=== PATIENT | female | born 1975 | race Hispanic/Latino ===

== ENCOUNTER 2023-12-19 14:02 | Emergency (ER) | payer BC ==
[2023-12-19] MEDS ORDERED: IBUPROFEN 200 MG TAB PO ONE (14:38)
--- NOTE | 2023-12-19 16:29 | RAD REPORT ---
EXAM DESCRIPTION: RAD - Shoulder Left 2 View - 12/19/2023 2:44 pm CLINICAL HISTORY: PAIN COMPARISON: No comparisons TECHNIQUE: Internal and external rotation views of the left shoulder were obtained. FINDINGS: There is no fracture or dislocation. AC joint is normal in appearance. No acute or suspici ous findings. IMPRESSION: Negative two-view left shoulder examination.
--- NOTE | 2023-12-19 16:37 | ER ---
Nurse's Notes [facility] Name: Dora Oliveira Age: 48 yrs Sex: Female : 1975 Arrival Date: 12/19/2023 Time: 14:02 Bed DX2 Private MD: Diagnosis: Pain in left shoulder Presentation: 12/18 14:16 Chief complaint: Patient states: L anterior chest pain/L shoulder pain from trying to me1 break down a door. 12/05. Coronavirus screen: Vaccine status: Patient reports receiving the 2nd dose of the covid vaccine. Ebola Screen: No symptoms or risks identified at this time. Initial Sepsis Screen: Does the patient meet any 2 criteria? No. Patient's initial sepsis screen is negative. Risk Assessment: Do you want to hurt yourself or someone else? Patient reports no desire to harm self or others. Onset of symptoms was December 19, 2023. 14:16 Method Of Arrival: [place] [facility] [place] 14:16 Acuity: JENNIFER 4 md1 16:43 Initial Sepsis Screen: Does the patient have a suspected source of infection? No. me1 Patient's initial sepsis screen is negative. Triage Assessment: 14:17 General: Appears uncomfortable, obese, well groomed, well developed, Behavior is calm, me1 cooperative, appropriate for age, Reports L chest/shoulder pain. Pain: Complains of pain in left clavicle and anterior aspect of left upper chest Pain does not radiate. Pain currently is 7 out of 10 on a pain scale. Quality of pain is described as gnawing, Pain began suddenly, 1 hour ago. Is continuous. EENT: No deficits noted. Neuro: Level of Consciousness is awake, alert, obeys commands, Oriented to person, place, time, situation, Appropriate for age. Cardiovascular: Patient's skin is warm and dry. Respiratory: Airway is patent Respiratory effort is even, unlabored, Respiratory pattern is regular, symmetrical. GI: No signs and/or symptoms were reported involving the gastrointestinal system. : No signs and/or symptoms were reported regarding the genitourinary system. Derm: Skin is intact, is healthy with good turgor, Skin is pink, warm \T\ dry. Musculoskeletal: Reports pain in left clavicle and anterior aspect of left upper chest. 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 - Infectious Disease History:: Denies. - Social history:: Smoking status: Patient denies any tobacco usage or history of. Screenin:17 [facility] ED Fall Risk Assessment (Adult) History of falling in the last 3 months, me1 including since admission No falls in past 3 months (0 pts) Confusion or Disorientation No (0 pts) Intoxicated or Sedated No (0 pts) Impaired Gait No (0 pts) Mobility Assist Device Used No (0 pt) Altered Elimination No (0 pt) Score/Fall Risk Level 0 - 2 = Low Risk Maintained a safe environment, Provided non-skid footwear, Hourly rounding (assess needs \T\ fall precautionary measures) done. Abuse screen: Denies threats or abuse. Nutritional screening: No deficits noted. Tuberculosis screening: No symptoms or risk factors identified. Assessment: 15:35 General: See triage assessment. . me1 Vital Signs: 14:16 BP 126 / 67; Pulse 96; Resp 17; Temp 98.6; Pulse Ox 98% ; Weight 81.65 kg; Height 5 ft. me1 2 in. ; Pain 7/10; 15:35 Pain 4/10; me1 16:43 BP 121 / 56; Pulse 91; Resp 17; Temp 98.4; Pulse Ox 99% ; me1 14:16 Body Mass Index 32.92 (81.65 kg, 157.48 cm) me1 14:16 Pain Scale: Adult me1 15:35 Pain Scale: Adult me1 ED Course: 14:08 Patient arrived in ED. bd 14:10 Serafin Lund DO is Attending Physician. ms3 14:17 Triage completed. me1 14:17 Arm band placed on right wrist. me1 14:17 Patient has correct armband on for positive identification. Bed in low position. Call me1 light in reach. Side rails up X2. Provided Education on: POC. Verbalized understanding. . 14:17 No provider procedures requiring assistance completed. Patient did not have IV access me1 during this emergency room visit. 14:46 Shoulder Left (2 View) XRAY In Process Unspecified. EDMS 16:37 Sea Ibanez DO is Referral Physician. ms3 16:42 Terri Maldonado, RN is Primary Nurse. me1 Administered Medications: 14:40 Drug: Ibuprofen PO 600 mg PO once Route: PO; me1 15:35 Follow up: Pain 10 Adult; Response: No adverse reaction; Pain is decreased me1 Medication: 16:43 VIS not applicable for this client. me1 Outcome: 16:37 Discharge ordered by MD. ms3 16:44 Discharged to home ambulatory, me1 16:44 Condition: stable 16:44 Discharge instructions given to patient, Instructed on discharge instructions, follow up and referral plans. medication usage, Demonstrated understanding of instructions, follow-up care, medications, Prescriptions given X 1, 16:44 Patient left the ED. me1 Signatures: Dispatcher [employer] EDMS Silke Santiago Marcus, DO DO ms3 Terri Maldonado, RN RN me1
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
[2023-12-21 17:36] VITALS: BP 121/56; TEMP 98.4; O2SAT 99
== END 2023-12-19 16:44 | disposition home or self-care (01) ==
LOC: ER 14:02
DX: M25.512 Pain in left shoulder (principal); E11.9 Type 2 diabetes mellitus without complications
CPT/HCPCS: 99283